=== PATIENT | male | born 1990 | race Caucasian/White ===

== ENCOUNTER 2017-08-26 23:49 | Emergency (ER) | payer SELFPAY ==
[2017-08-27 00:14] VITALS: BP 154/87
[2017-08-27] MEDS ORDERED: ACETAMINOPHEN 325 MG TABLET PO ONE (03:03)
[2017-08-27] MEDS ORDERED: PENICILLIN V POTASSIUM 500 MG TABLET PO ONE (03:03)
[2017-08-27] MEDS ORDERED: MORPHINE SULFATE IR 15 MG TABLET PO ONE (03:04)
[2017-08-27] MEDS ORDERED: IBUPROFEN 600 MG TABLET PO ONE (03:04)
--- NOTE | 2017-08-27 03:10 | ER Document Report ---
ED General - General Chief Complaint: Toothache Stated Complaint: TOOTHACHE Time Seen by Provider: 08/27/17 02:56 Notes: Patient is a 27-year-old male without past medical history who presents with 3 days of severe dental pain. Patient describes a constant, throbbing, aching pain to the right lower side of his jaw that has been unchanged since onset. Eating and drinking worsens the pain. He has been trying ibuprofen without improvement of the pain. He denies any fever, facial swelling, difficulty breathing or swallowing. He does not have access to insurance or dental care. Reports a history of similar symptoms in the past with dental infections. TRAVEL OUTSIDE OF THE [place] IN LAST 30 DAYS: No - Related Data Allergies/Adverse Reactions: Sulfa (Sulfonamide Antibiotics) Allergy (Verified 08/26/17 23:51) Past Medical History - General Information source: Patient - Social History Smoking Status: Never Smoker Chew tobacco use (# tins/day): No Frequency of alcohol use: None Drug Abuse: None Lives with: Family Family History: Reviewed & Not Pertinent Patient has suicidal ideation: No Patient has homicidal ideation: No Renal/ Medical History: Denies: Hx Peritoneal Dialysis Review of Systems - Review of Systems Notes: Constitutional: Negative for fever. HENT: Positive for dental pain Eyes: Negative for visual changes. Cardiovascular: Negative for chest pain. Respiratory: Negative for shortness of breath. Gastrointestinal: Negative for abdominal pain, vomiting or diarrhea. Genitourinary: Negative for dysuria. Musculoskeletal: Negative for back pain. Skin: Negative for rash. Neurological: Negative for headaches, weakness or numbness. 10 point ROS negative except as marked above and in HPI. Physical Exam - Vital signs Vitals: Temp Pulse Resp BP Pulse Ox 98.5 F 94 18 154/87 H 94 08/27/17 00:13 08/27/17 00:13 08/27/17 00:13 08/27/17 00:13 08/27/17 00:13 Interpretation: Hypertensive Notes: PHYSICAL EXAMINATION: GENERAL: Well-appearing, well-nourished and in no acute distress. HEAD: Atraumatic, normocephalic. EYES: sclera anicteric, conjunctiva are normal. ENT: Moist mucous membranes. Diffuse dental caries, no significant facial swelling oral edema NECK: Normal range of motion LUNGS: Normal work of breathing HEART: 2+ radial pulses bilaterally EXTREMITIES: no pitting or edema. No cyanosis. NEUROLOGICAL: No focal neurological deficits. Moves all extremities spontaneously and on command. PSYCH: Normal mood, normal affect. SKIN: Warm, Dry, normal turgor, no rashes or lesions noted. Course - Re-evaluation Re-evalutation: 08/27/17 03:04 Presentation is most consistent with likely an infected tooth. Airway is patent. Vitals within normal limits. Patient is able swallow without any difficulty. There is no significant facial swelling. No evidence of Ramiro angina, apical abscess, or airway obstruction. Patient will be started on antibiotics. I've instructed to follow-up with dentistry as earliest ability for definitive management. At this time will discharge with return precautions and follow-up recommendations. Verbal discharge instructions given a the bedside and opportunity for questions given. Medication warnings reviewed. Patient is in agreement with this plan and has verbalized understanding of return precautions and the need for primary care follow-up in the next 24-72 hours. - Vital Signs Vital signs: Temp Pulse Resp BP Pulse Ox 98.5 F 94 18 154/87 H 94 08/27/17 00:13 08/27/17 00:13 08/27/17 00:13 08/27/17 00:13 08/27/17 00:13 Discharge - Discharge Clinical Impression: Dental caries, Pain due to dental caries Condition: Good Disposition: HOME, SELF-CARE Additional Instructions: You have been seen for dental pain. It is very important that you follow-up with a dentist for definitive care. Please return if you develop fever greater than 101, swelling in your face, vomiting, difficulty breathing or swallowing, or any other symptoms that are concerning to you. For your pain: Take ibuprofen 600 mg and acetaminophen 1000 mg every 6 hours together as needed for pain. If this does not control your pain you may take 15 mg of oral morphine every 4 hours as needed. Please be very careful about using the oral morphine and only use this for severe pain. Prescriptions: Morphine Sulfate [Morphine Ir 15 mg Tablet] 15 mg PO Q4HP PRN #6 tablet PRN Reason:
== END 2017-08-27 03:33 | disposition home or self-care (01) ==
LOC: ER 23:49
DX: K02.9 Dental caries, unspecified (principal); K08.89 Other specified disorders of teeth and supporting structures; Z88.2 Allergy status to sulfonamides
CPT/HCPCS: 99282